=== PATIENT | female | born 1990 | race Caucasian/White ===

== ENCOUNTER → 2020-05-13 | Outpatient (CLI) | payer SELFPAY | END | disposition home or self-care (01) | LOC: LAB 08:54 | PROVIDERS: ATTEND Obstetrics & Gynecology | DX: Z20.828 Contact with and (suspected) exposure to other viral communicable diseases (principal) | CPT/HCPCS: C9803; U0003 ==

== ENCOUNTER 2020-05-16 05:40 | Inpatient (IN) | payer SELFPAY ==
[2020-05-14] MEDS: DEXT 5%/LR + PITOCIN 20UNITS/L 1,000 ML IV SCH (20:18)
[~2020-05-16] VITALS: Ht 163 cm; Wt 72.6 kg
[2020-05-16] MEDS ORDERED: DEXT 5%/LR + PITOCIN 20UNITS/L 1,000 ML IV SCH (06:35)
[2020-05-16] MEDS ORDERED: MISOPROSTOL 200MCG TABLET VG SCH (06:45)
[2020-05-16] MEDS ORDERED: METHYLERGONOVINE MALEATE 0.2 MG/ML IM PRN (06:45)
[2020-05-16] MEDS ORDERED: CARBOPROST TROMETHAMINE 250 MCG/ML AMPUL IM PRN (06:45)
[2020-05-16] MEDS ORDERED: LACTATED RINGERS 1,000 ML IV SCH (07:00)
[2020-05-16 08:00] LABS: BASOPHILS % 0.8 % (0.0-2.0); CLARITY URINE CLOUDY (CLEAR); COLOR URINE YELLOW (YELLOW); EOSINOPHILS % 0.7 % (0.0-5.0); HEMATOCRIT. 28.9 % (36.0-48.0); HEMOGLOBIN. 9.3 g/dL (12.0-16.0); KETONES URINE NEGATIVE (NEGATIVE); LEUKOCYTE ESTERASE URINE NEGATIVE (NEGATIVE); LYMPHOCYTES % 20.4 % (20.0-50.0); MEAN CORPUSCULAR HEMOGLOBIN 25.9 pg (28.0-32.0); MEAN CORPUSCULAR VOLUME 80.1 fL (81.0-99.0); MEAN PLATELET VOLUME 10.1 fl (7.4-10.4); NEUTROPHILS % 70.1 % (40.0-76.0); NITRITE URINE NEGATIVE (NEGATIVE); OCCULT BLOOD URINE TRACE (NEGATIVE); PLATELET 246 x1000/uL (130-400); PROTEIN URINE NEGATIVE (NEGATIVE); RED CELL DISTRIBUTION WIDTH 14.7 % (11.6-14.6); SPECIFIC GRAVITY URINE 1.021 (1.005-1.030); UROBILINOGEN URINE 0.2 E.U./dL (0.2-1.0)
[2020-05-16 08:08] LABS: *AMPHETAMINES SCREEN URINE NEGATIVE (NEGATIVE); *BARBITURATES SCREEN URINE NEGATIVE (NEGATIVE); *BENZODIAZEPINES SCREEN URINE NEGATIVE (NEGATIVE)
[2020-05-16 08:09] LABS: *COCAINE SCREEN URINE NEGATIVE (NEGATIVE); CANNABINOID URINE SCREEN NEGATIVE (NEGATIVE); METHADONE URINE SCREEN NEGATIVE (NEGATIVE); OPIATES URINE SCREEN NEGATIVE (NEGATIVE); PHENCYCLIDINE URINE SCREEN NEGATIVE (NEGATIVE)
[2020-05-16] MEDS ORDERED: METOCLOPRAMIDE HCL 10MG/2ML VIAL IV PRN (08:45)
[2020-05-16] MEDS ORDERED: DIPHENHYDRAMINE 50MG/ML VIAL IV PRN (08:45)
[2020-05-16] MEDS ORDERED: MORPHINE SULFATE 10 MG/ML CPJ IV PRN (08:45)
[2020-05-16] MEDS ORDERED: NALOXONE HCL 0.4 MG/ML 1ML VIAL IV PRN (08:45)
[2020-05-16] MEDS ORDERED: ONDANSETRON HCL 4MG/2ML INJ IV PRN ×2 (08:45→10:15)
[2020-05-16] MEDS ORDERED: FENTANYL CITRATE/PF 50MCG/ML 2ML VIAL IV PRN (08:45)
[2020-05-16] MEDS ORDERED: DIPHENHYDRAMINE 25MG CAPSULE PO PRN (10:15)
[2020-05-16] MEDS ORDERED: HYDROCODONE/ACETAMINOPHEN 5/325MG TABLET PO PRN (10:15)
[2020-05-16] MEDS ORDERED: LANOLIN OINT 7GM TUBE TOP PRN (10:15)
[2020-05-16] MEDS ORDERED: BISACODYL 10MG SUPP PR PRN (10:15)
[2020-05-16] MEDS ORDERED: IBUPROFEN 400MG TABLET PO PRN (10:15)
[2020-05-16] MEDS ORDERED: HEMORRHOIDAL SUPP PR PRN (10:15)
[2020-05-16] MEDS ORDERED: DEXT 5%/LACTATED RINGERS 1,000 ML IV SCH (10:15)
[2020-05-16 10:51] LABS: HEPATITIS B SURFACE ANTIGEN NEGATIVE
[2020-05-16] MEDS: KETOROLAC 30MG/ML VIAL IV SCH ×2 (11:45→18:00)
[2020-05-16] MEDS: DEXT 5%/LR + PITOCIN 20UNITS/L 1,000 ML IV SCH (11:47)
[2020-05-16 12:35] VITALS: BP 137/79
[2020-05-16 14:30] VITALS: BP 135/78
[2020-05-16 20:00] VITALS: BP 125/77
[2020-05-16] MEDS ORDERED: DOCUSATE SODIUM 100MG CAPSULE PO SCH (21:00)
[2020-05-17] VITALS: BP 126/76
[2020-05-17] MEDS ORDERED: KETOROLAC 30MG/ML VIAL IV SCH (00:15)
[2020-05-17] MEDS: KETOROLAC 30MG/ML VIAL IV SCH (00:21)
[2020-05-17 06:31] LABS: BASOPHILS % 0.3 % (0.0-2.0); EOSINOPHILS % 0.3 % (0.0-5.0); HEMATOCRIT. 27.4 % (36.0-48.0); LYMPHOCYTES % 9.3 % (20.0-50.0); MEAN CORPUSCULAR HEMOGLOBIN 26.4 pg (28.0-32.0); MEAN PLATELET VOLUME 9.6 fl (7.4-10.4); MONOCYTES % 8.1 % (2.0-8.0); PLATELET 221 x1000/uL (130-400); RED BLOOD CELL COUNT 3.43 mill/uL (4.2-5.4); RED CELL DISTRIBUTION WIDTH 14.6 % (11.6-14.6)
[2020-05-17 08:00] VITALS: BP 121/79
[2020-05-17] MEDS: FERROUS SULFATE 325MG TABLET PO SCH ×2 (08:27→18:01)
[2020-05-17] MEDS: IBUPROFEN 800MG TABLET PO PRN ×2 (08:27→18:01)
[2020-05-17] MEDS: PRENATAL VIT/FE FUMARATE/FA TABLET PO SCH (08:27)
[2020-05-17] MEDS ORDERED: CEFAZOLIN 2,000 MG in DEXT 5% WATER 100 ML IV SCH (11:00)
[2020-05-17] MEDS: AMOXICILLIN/POTASSIUM CLAVULANATE 875/125MG TAB PO SCH (18:08)
[2020-05-17 20:00] VITALS: BP 140/89
[2020-05-18] VITALS: BP 135/81
[2020-05-18] MEDS: IBUPROFEN 800MG TABLET PO PRN ×3 (00:56→14:35)
[2020-05-18] MEDS: SIMETHICONE 80MG TABLET CHEW PO SCH ×2 (00:57→08:42)
[2020-05-18] MEDS: AMOXICILLIN/POTASSIUM CLAVULANATE 875/125MG TAB PO SCH (02:05)
[2020-05-18 08:00] VITALS: BP 138/86
[2020-05-18] MEDS: FERROUS SULFATE 325MG TABLET PO SCH (08:42)
[2020-05-18] MEDS: PRENATAL VIT/FE FUMARATE/FA TABLET PO SCH (08:42)
[2020-05-18 14:35] VITALS: BP 141/85
== END 2020-05-18 14:45 | disposition home or self-care (01) | DRG 540 ==
LOC: 8 EST LDRP 05:40 → 8EST 12:18
PROVIDERS: ADMIT Obstetrics & Gynecology; ATTEND Obstetrics & Gynecology
PROC: 10D00Z1 Extraction of Products of Conception, Low, Open Approach (ICD-10-PCS; principal; 2020-05-16)
DX: O34.211 Maternal care for low transverse scar from previous cesarean delivery (principal); O69.81X0 Labor and delivery complicated by cord around neck, without compression, not applicable or unspecified; Z37.0 Single live birth; Z3A.39 39 weeks gestation of pregnancy
CPT/HCPCS: 36415; 80305; 81003; 85025; 86592; 86703; 86762; 86850; 86900; 86920; 87340; 88307; J0330; J0690; J1885; J2274; J2590; J3490; J7060; J7120; J7121